=== PATIENT | female | born 1980 | race Caucasian/White ===

== ENCOUNTER 2021-11-29 10:54 | Emergency (ER) | payer SELFPAY ==
[~2021-11-29] VITALS: Ht 162.6 cm; Wt 77.1 kg
--- NOTE | 2021-11-29 11:00 | NUR ---
Patient ambulatory, alert and oriented x4 complaints of laceration on left hand this morning, no active bleeding noted. Vitals stable.
--- NOTE | 2021-11-29 11:10 | NUR ---
Irrigated the Laceration on LT hand at the base of thumb,per Md request, pt tolorated well.
--- NOTE | 2021-11-29 11:54 | NUR ---
Patient discharged to home in stable condition. Written and verbal after care instructions given. Patient verbalizes understanding of instructions. Stressed follow up or return to ER for worsening s/s.
[2021-11-29 11:57] VITALS: BP 125/80
== END 2021-11-29 11:55 | disposition home or self-care (01) ==
LOC: ER 10:54
DX: S61.412A Laceration without foreign body of left hand, initial encounter (principal); W25.XXXA Contact with sharp glass, initial encounter; Y93.G1 Activity, food preparation and clean up; Y92.89 Other specified places as the place of occurrence of the external cause
CPT/HCPCS: 73130; A4663